=== PATIENT | female | born 1970 | race African-American/Black ===

== ENCOUNTER 2025-02-16 14:36 | Inpatient (IN) | payer MEDICAID ==
[~2025-02-16] VITALS: Ht 154.9 cm; Wt 59.6 kg
[2025-02-16] VITALS (12 sets, daily range): BP systolic 150–168; BP diastolic 90–138; PULSE 61–125; RESP 11–37; TEMP 36.4; O2SAT 89–99
[2025-02-16] MEDS: DILTIAZEM HCL 5MG/ML 5ML VIAL IV ONE (15:34)
[2025-02-16] MEDS ORDERED: DILTIAZEM HCL 120MG CAPSULE ER 24HR PO ONE (16:15)
[2025-02-16 16:33] LABS: DIFFERENTIAL COMMENT 0; EOSINOPHILS % 2.9 % (0.0-5.0); HEMATOCRIT. 42.2 % (36.0-48.0); HEMOGLOBIN. 14.6 g/dL (12.0-16.0); LYMPHOCYTES % 51.5 % (20.0-50.0); MEAN CORPUSCULAR HEMOGLOBIN 30.2 pg (28.0-32.0); MEAN CORPUSCULAR HGB CONC 34.6 g/dL (31.0-37.0); MEAN CORPUSCULAR VOLUME 87.4 fL (81.0-99.0); MEAN PLATELET VOLUME 8.7 fl (7.4-10.4); MONOCYTES % 9.7 % (2.0-8.0); NEUTROPHILS % 34.9 % (40.0-76.0); PLATELET 293 x1000/uL (130-400); RED BLOOD CELL COUNT 4.83 mill/uL (4.2-5.4); RED CELL DISTRIBUTION WIDTH 14.2 % (11.6-14.6); WHITE BLOOD COUNT 5.7 x1000/uL (4.5-11.0)
[2025-02-16 16:40] LABS: CHLORIDE 108 mEq/L (98-107); POTASSIUM 3.5 mEq/L (3.5-5.1); SODIUM 145 mEq/L (136-145)
[2025-02-16 16:41] LABS: CALCIUM 9.2 mg/dL (8.7-10.4); CARBON DIOXIDE 28 mEq/L (21-32)
[2025-02-16 16:43] LABS: PARTIAL THROMBOPLASTIN TIME 27.4 sec (23.4-31.0)
[2025-02-16 16:46] LABS: GLUCOSE 101 mg/dL (70-105); UREA NITROGEN BLOOD 13 mg/dL (9-23)
[2025-02-16 16:53] LABS: TROPONIN I HIGH SENSITIVITY 1384 ng/L (3.0-34)
[2025-02-16] MEDS ORDERED: HEPARIN 5000 UNITS/ML VIAL IV PRN ×3 (17:00→18:22)
[2025-02-16] MEDS: ASPIRIN 325MG EC TABLET PO ONE (17:00)
[2025-02-16] MEDS ORDERED: HEPARIN 5000 UNITS/ML VIAL IV SCH (17:00)
[2025-02-16] MEDS: DILTIAZEM HCL 60MG TABLET PO SCH (17:08)
[2025-02-16] MEDS: CLOPIDOGREL 75MG TABLET PO ONE (18:51)
[2025-02-16] MEDS: HEPARIN 5000 UNITS/ML VIAL IV SCH (18:52)
[2025-02-16] MEDS: HEPARIN 25,000 UNITS PREMIX 250 ML IV PRN (19:36)
[2025-02-16 20:12] LABS: TROPONIN I HIGH SENSITIVITY 1257 ng/L (3.0-34)
[2025-02-16] MEDS: AMIODARONE 150MG/100ML D5W 100 ML IV NR (20:30)
[2025-02-16] MEDS ORDERED: ONDANSETRON HCL 4MG/2ML INJ IV PRN (20:30)
[2025-02-16] MEDS ORDERED: AMIODARONE 360MG/200ML 200 ML IV SCH (20:45)
[2025-02-16] MEDS: MAGNESIUM 1 G PREMIX 100 ML IV NR (21:10)
[2025-02-16] MEDS ORDERED: AMIODARONE HCL 900 MG in DEXT 5% WATER 482 ML IV SCH (21:15)
[2025-02-16] MEDS ORDERED: AMIODARONE HCL 150 MG in DEXT 5% WATER 100 ML IV ONE (21:15)
[2025-02-16 21:20] LABS: THYROID STIMULATING HORMONE 3.9 uIU/mL (0.55-4.78)
[2025-02-16] MEDS: LABETALOL 5MG/ML 4ML INJ IV NR (21:44)
[2025-02-16] MEDS ORDERED: IOHEXOL-350 100 ML BOTTLE ONE ×2 (23:36→23:38)
[2025-02-17] VITALS (96 sets, daily range): BP systolic 110–161; BP diastolic 85–128; PULSE 55–145; RESP 0–45; TEMP 36.1–36.4; O2SAT 70–100
[2025-02-17] MEDS ORDERED: HEPARIN 5000 UNITS/ML VIAL IV PRN
[2025-02-17] MEDS: HEPARIN 5000 UNITS/ML VIAL IV PRN (03:28)
[2025-02-17 05:44] LABS: HEMATOCRIT. 37.8 % (36.0-48.0); MEAN CORPUSCULAR HEMOGLOBIN 30.4 pg (28.0-32.0); MEAN CORPUSCULAR HGB CONC 34.3 g/dL (31.0-37.0); MEAN CORPUSCULAR VOLUME 88.7 fL (81.0-99.0); MEAN PLATELET VOLUME 9.4 fl (7.4-10.4); PLATELET 253 x1000/uL (130-400); RED BLOOD CELL COUNT 4.26 mill/uL (4.2-5.4); RED CELL DISTRIBUTION WIDTH 14.1 % (11.6-14.6); WHITE BLOOD COUNT 6.3 x1000/uL (4.5-11.0)
[2025-02-17 05:47] LABS: DIFFERENTIAL COMMENT 1
[2025-02-17 05:56] LABS: CHLORIDE 109 mEq/L (98-107); POTASSIUM 3.2 mEq/L (3.5-5.1); SODIUM 145 mEq/L (136-145)
[2025-02-17 05:57] LABS: CALCIUM 8.9 mg/dL (8.7-10.4); CARBON DIOXIDE 25 mEq/L (21-32)
[2025-02-17 06:02] LABS: CREATININE 0.9 mg/dL (0.6-1.0); GLUCOSE 98 mg/dL (70-105); UREA NITROGEN BLOOD 11 mg/dL (9-23)
[2025-02-17] MEDS: KCL 20MEQ/100ML PREMIX 100 ML IV SCH (06:36)
[2025-02-17] MEDS: PANTOPRAZOLE SODIUM 40 MG/VIAL IV SCH (08:25)
[2025-02-17] MEDS: METOPROLOL TARTRATE 50MG TABLET PO SCH (08:26)
[2025-02-17] MEDS: AMLODIPINE 10MG TABLET PO SCH (08:26)
[2025-02-17] MEDS: FUROSEMIDE 40MG/4ML VIAL IVP SCH (08:26)
[2025-02-17 08:28] LABS: PLATELET ESTIMATE NORMAL
[2025-02-17] MEDS ORDERED: IPRATROPIUM BROMIDE (0.02%) 0.5MG/2.5ML NEB HHN PRN (09:45)
[2025-02-17] MEDS: DIGOXIN 500MCG/2ML AMP IV SCH ×2 (10:06→13:14)
[2025-02-17] MEDS: POTASSIUM CHLORIDE 20MEQ/PACKET PO SCH ×2 (10:30→13:10)
[2025-02-17 10:38] LABS: CLARITY URINE CLEAR (CLEAR); COLOR URINE YELLOW (YELLOW); GLUCOSE URINE NEGATIVE (NEGATIVE); KETONES URINE NEGATIVE (NEGATIVE); LEUKOCYTE ESTERASE URINE TRACE (NEGATIVE); NITRITE URINE NEGATIVE (NEGATIVE); OCCULT BLOOD URINE NEGATIVE (NEGATIVE); PH URINE 7.5 (4.5-8.0); PROTEIN URINE NEGATIVE (NEGATIVE); SPECIFIC GRAVITY URINE 1.019 (1.005-1.030); UROBILINOGEN URINE 0.2 E.U./dL (0.2-1.0)
[2025-02-17 11:09] LABS: SQUAMOUS EPITHELIAL CELL URINE RARE /lpf (RARE/1+); WBC URINE 0-2 /hpf (0-2)
[2025-02-17 11:10] LABS: BACTERIA URINE NONE SEEN; RBC URINE NONE SEEN /hpf (0-2)
[2025-02-17 11:12] LABS: *AMPHETAMINES SCREEN URINE NEGATIVE (NEGATIVE); *BARBITURATES SCREEN URINE NEGATIVE (NEGATIVE); *BENZODIAZEPINES SCREEN URINE NEGATIVE (NEGATIVE); *COCAINE SCREEN URINE NEGATIVE (NEGATIVE); METHADONE URINE SCREEN NEGATIVE (NEGATIVE)
[2025-02-17 11:13] LABS: CANNABINOID URINE SCREEN PRESUMPTIVE POSITIVE (NEGATIVE); ECSTASY MDMA SCREEN URINE NEGATIVE (NEGATIVE); OPIATES URINE SCREEN NEGATIVE (NEGATIVE); PHENCYCLIDINE URINE SCREEN NEGATIVE (NEGATIVE)
[2025-02-17] MEDS: ENOXAPARIN 60MG/0.6ML SYR SUBCUT SCH (13:10)
[2025-02-17] MEDS: DIGOXIN 125MCG TABLET PO SCH (17:46)
[2025-02-17] MEDS ORDERED: METOPROLOL TARTRATE 50MG TABLET PO SCH (21:28)
[2025-02-18] VITALS (84 sets, daily range): BP systolic 119–191; BP diastolic 80–146; PULSE 45–77; RESP 0–35; TEMP 36.3–36.9; O2SAT 73–100
[2025-02-18] MEDS: HYDRALAZINE 20MG/ML VIAL IV PRN (01:05)
[2025-02-18] MEDS: METOPROLOL TARTRATE 50MG TABLET PO SCH (08:12)
[2025-02-18] MEDS ORDERED: IPRATROPIUM/ALBUTEROL 0.5-3(2.5)MG/3ML NEB HHN PRN (10:30)
[2025-02-18] MEDS ORDERED: HEPARIN 1000 UNITS/ML 10ML ONE (14:34)
[2025-02-18] MEDS ORDERED: IODIXANOL 320MG/ML 100 ML BOTTLE IV ONE (14:35)
[2025-02-18] MEDS ORDERED: LIDOCAINE HCL 1% 10 MG/ML 10ML VIAL ONE (14:45)
[2025-02-18] MEDS ORDERED: FENTANYL CITRATE/PF 50MCG/ML 2ML VIAL ONE (14:47)
[2025-02-18] MEDS ORDERED: MIDAZOLAM HCL 2 MG/2 ML VIAL ONE (14:47)
[2025-02-18] MEDS: ACETAMINOPHEN 325MG TABLET PO PRN (20:03)
[2025-02-18 21:23] LABS: CHLORIDE 105 mEq/L (98-107); POTASSIUM 4.4 mEq/L (3.5-5.1); SODIUM 140 mEq/L (136-145)
[2025-02-18 21:24] LABS: CALCIUM 9.5 mg/dL (8.7-10.4); CARBON DIOXIDE 25 mEq/L (21-32)
[2025-02-18 21:29] LABS: CREATININE 0.8 mg/dL (0.6-1.0); GLUCOSE 98 mg/dL (70-105); UREA NITROGEN BLOOD 10 mg/dL (9-23)
[2025-02-19] VITALS: BP 143/104; PULSE 111; RESP 21; TEMP 36.4; O2SAT 97
[2025-02-19 00:50] LABS: HEMATOCRIT. 45.6 % (36.0-48.0); HEMOGLOBIN. 15.4 g/dL (12.0-16.0); MEAN CORPUSCULAR HGB CONC 33.7 g/dL (31.0-37.0); MEAN CORPUSCULAR VOLUME 89.2 fL (81.0-99.0); MEAN PLATELET VOLUME 9.4 fl (7.4-10.4); PLATELET 257 x1000/uL (130-400); RED BLOOD CELL COUNT 5.12 mill/uL (4.2-5.4); WHITE BLOOD COUNT 6.1 x1000/uL (4.5-11.0)
[2025-02-19 00:55] LABS: DIFFERENTIAL COMMENT 1
[2025-02-19 02:09] LABS: PLATELET ESTIMATE NORMAL
[2025-02-19 04:00] VITALS: BP 149/75; PULSE 61; RESP 26; O2SAT 98
[2025-02-19 08:00] VITALS: BP 142/90; PULSE 69; RESP 16; TEMP 36.4; O2SAT 100
[2025-02-19] MEDS: METOPROLOL TARTRATE 25MG TABLET PO SCH ×2 (09:02→11:00)
[2025-02-19] MEDS: ENOXAPARIN 40MG/0.4ML SYR SUBCUT SCH (09:08)
[2025-02-19 10:07] LABS: HBSAG SCREEN Confirm. indicated (Negative)
[2025-02-19] MEDS: DIGOXIN 500MCG/2ML AMP IV SCH (11:00)
[2025-02-19] MEDS ORDERED: APIX5TAB PO (11:21)
[2025-02-19] MEDS ORDERED: FURO-151 MT (11:21)
[2025-02-19] MEDS ORDERED: LOSA100T33 MT (11:21)
[2025-02-19] MEDS ORDERED: METO25TA6 PO (11:21)
[2025-02-19] MEDS ORDERED: AMLO10TA80 PO (11:21)
[2025-02-19] MEDS ORDERED: SPIR25TA6 MT (11:21)
[2025-02-19 12:00] VITALS: BP 143/96; PULSE 57; RESP 17; TEMP 36.4; O2SAT 97
[2025-02-19 13:12] LABS: HBSAG CONFIRMATION Positive (.)
[2025-02-19 15:12] VITALS: BP 143/96; PULSE 53; TEMP 97.5; O2SAT 97
[2025-02-19 16:00] VITALS: BP 148/98; PULSE 25; RESP 25; TEMP 36.4; O2SAT 98
[2025-02-19] MEDS ORDERED: HYDRALAZINE 10 MG in SODIUM CHLORIDE 0.9% 49.5 ML IV PRN (17:00)
[2025-02-19] MEDS ORDERED: HYDRALAZINE 20MG/ML VIAL IV PRN (17:15)
[2025-02-19] MEDS: DIGOXIN 125MCG TABLET PO SCH (18:00)
[2025-02-19] MEDS ORDERED: APIXABAN 5 MG TABLET PO SCH (21:00)
[2025-02-20] MEDS ORDERED: FAMOTIDINE 20MG TABLET PO SCH (09:00)
== END 2025-02-19 18:09 | disposition home or self-care (01) | DRG 192 ==
LOC: ER 14:36 → CVICU 16:57 → EDBEDREQTM 17:01 → EDBEDREQSVC 17:01 → EDBEDREQ 17:02 → ENRESERV 19:11 → CVICU 20:12 → 3WST 02-18 22:37 → 7EST 02-19 16:52 → 3WST 02-19 17:08
PROVIDERS: ADMIT Internal Medicine; ATTEND Internal Medicine
PROC: 4A023N7 Measurement of Cardiac Sampling and Pressure, Left Heart, Percutaneous Approach (ICD-10-PCS; principal; 2025-02-18)
PROC: B2111ZZ Fluoroscopy of Multiple Coronary Arteries using Low Osmolar Contrast (ICD-10-PCS; 2025-02-18)
PROC: B2151ZZ Fluoroscopy of Left Heart using Low Osmolar Contrast (ICD-10-PCS; 2025-02-18)
DX: I11.0 Hypertensive heart disease with heart failure (principal); J96.01 Acute respiratory failure with hypoxia; I21.4 Non-ST elevation (NSTEMI) myocardial infarction; I31.39 Other pericardial effusion (noninflammatory); D68.59 Other primary thrombophilia; I42.9 Cardiomyopathy, unspecified; I48.0 Paroxysmal atrial fibrillation; G35 Multiple sclerosis; I50.23 Acute on chronic systolic (congestive) heart failure; E83.42 Hypomagnesemia; J44.9 Chronic obstructive pulmonary disease, unspecified; J96.02 Acute respiratory failure with hypercapnia; F17.210 Nicotine dependence, cigarettes, uncomplicated; F12.90 Cannabis use, unspecified, uncomplicated; I87.8 Other specified disorders of veins; I49.3 Ventricular premature depolarization; I25.2 Old myocardial infarction; Z59.01 Sheltered homelessness; Z79.899 Other long term (current) drug therapy; Z86.73 Personal history of transient ischemic attack (TIA), and cerebral infarction without residual deficits
CPT/HCPCS: 36415; 71045; 71275; 80048; 80061; 80305; 81003; 83036; 83735; 83880; 84443; 84484; 85025; 87340; 93005; 93306; 93458; 96374; 99285; A4606; C1769; C1887; C1893; J0282; J0360; J1160; J1644; J1650; J1940; J2003; J2250; J2470; J3010; J3475; J3480; J3490; Q9967